=== PATIENT | male | born 1950 | race Two or more races ===

== ENCOUNTER 2016-12-25 15:41 | Emergency (ER) | payer OTHER, MEDICAID ==
[~2016-12-25] VITALS: Ht 170.2 cm; Wt 103.0 kg
[~2016-12-25 15:41] MED LIST: ALBU18 IN; AMLO10TA2 PO; ASPI81TA10 PO; CLOP75TA41 PO; DIA5T PO; FAMO-12 PO; FLUT110A IN; HYDR25TA4 PO; LISI30TA36 PO; LOSA50TA6 PO; MORP30TA PO; Nitrostat SL; POTA12PO2 PO; SIMV10TA84 PO
[2016-12-25] MEDS ORDERED: LORazepam 0.5 MG TAB PO ONE (16:45)
[2016-12-25 17:29] VITALS: BP 133/88
== END 2016-12-25 17:33 | disposition home or self-care (01) ==
LOC: EDBD 15:41 → ER 15:43
DX: F11.23 Opioid dependence with withdrawal (principal); F17.210 Nicotine dependence, cigarettes, uncomplicated; I48.91 Unspecified atrial fibrillation; J44.9 Chronic obstructive pulmonary disease, unspecified; M19.90 Unspecified osteoarthritis, unspecified site; E78.5 Hyperlipidemia, unspecified; K76.9 Liver disease, unspecified; Z90.49 Acquired absence of other specified parts of digestive tract; Z98.61 Coronary angioplasty status; Z79.899 Other long term (current) drug therapy
CPT/HCPCS: 93005